=== PATIENT | male | born 1950 | race Hispanic/Latino ===

== ENCOUNTER 2018-09-25 08:26 | Day surgery (SDC) | payer OTHER ==
[2018-09-20 14:32] VITALS: BMI 31.3
[2018-09-25] MEDS ORDERED: Phenylephrine 2.5% Opht Soln OD ONE (08:44)
[2018-09-25] MEDS ORDERED: Flurbiprofen 0.03% Opht SOLN OU SCH (08:45)
[2018-09-25] MEDS ORDERED: Tropicamide 1% Opht 150 DROP/15 ML RIGHTEYE SCH (08:45)
[2018-09-25] MEDS ORDERED: Lactated Ringer's 1,000 ML IV ONE ×2 (09:09→11:25)
[2018-09-25] MEDS ORDERED: Tropicamide 1% Opht 150 DROP/15 ML RIGHTEYE ONE (09:10)
[2018-09-25] MEDS ORDERED: Tetracaine 0.5% Ophth 2 ML BOTTLE ONE (09:23)
[2018-09-25] MEDS ORDERED: Maxitrol Opht Susp ONE (09:23)
[2018-09-25] MEDS ORDERED: EPINEPHrine 1 mg/ml (1:1000) Inj ONE (09:23)
[2018-09-25] MEDS ORDERED: STERILE IRRIGATING SOLUTION 15 ML IR ONE (09:24)
[2018-09-25] MEDS ORDERED: Lidocaine 1% 20 MG/2 ML PF AMP ONE (09:24)
[2018-09-25] MEDS ORDERED: Pilocarpine 1% Opht Soln ONE (09:24)
[2018-09-25] MEDS ORDERED: CA CL/K CL/NA CL 500 ML IR ONE (09:24)
[2018-09-25] MEDS ORDERED: STERILE IRRIGATING SOLUTION 30 ML IR ONE (09:24)
[2018-09-25] MEDS ORDERED: Chondroitin/Hyaluronate Opth Syringe KIT (0.55 ml-0.5 ml) IO ONE ×2 (09:25→11:45)
[2018-09-25] MEDS ORDERED: Povidone Iodine 5% Opht SOLUTION ONE (09:25)
[2018-09-25] MEDS ORDERED: Carbachol 0.01% IO ONE (09:25)
[2018-09-25] MEDS ORDERED: Flurbiprofen 0.03% Opht SOLN OU ONE (09:50)
[2018-09-25] MEDS ORDERED: Midazolam 2 MG/2 ML VIAL ONE (11:39)
[2018-09-25] MEDS ORDERED: BSS 15 ML SOL IR ONE (11:45)
[2018-09-25] MEDS ORDERED: Lidocaine 1.5% PF (20ml) amp IJ ONE (11:45)
[2018-09-25 13:36] VITALS: RESP 18
[2018-09-25 14:19] VITALS: BP 135/83; PULSE 75; TEMP 98.3; O2SAT 96
--- NOTE | 2018-09-27 01:26 | OP ---
PROCEDURE DATE: 09/25/2018 PREOPERATIVE DIAGNOSIS: Cataract and astigmatism of the right eye. POSTOPERATIVE DIAGNOSIS: Cataract and astigmatism of the right eye. SURGICAL PROCEDURE: Phacoemulsification with posterior chamber lens implant and astigmatic keratotomy of the right eye. DESCRIPTION OF PROCEDURE: The patient was prepped and draped in the usual manner for sterile ophthalmic surgery. Topical anesthesia and intracameral anesthetics were utilized for performance of the procedure. Under microsurgical control, the 150 degree axis was identified and marked. A 550 micron, depth 6 nicola blade was utilized for two astigmatic cuts at the 150 degree axis. After this was performed, a 2 o'clock clear corneal incision was made for the cataract procedure. Intracameral anesthetic was introduced and then it was followed by injection of viscoelastic. A continuous circular capsulorhexis was performed utilizing a bent 25-gauge needle. Hydrodissection was carried out subsequently for separation of the nucleus from the peripheral cortex. After this was carried out, a standard phacoemulsification was performed, followed by an ALINA removal of the residual lenticular cortex. A folded Aquasoft intraocular lens was injected through the single incision at the 2 o'clock position. The intraocular lens was properly positioned and the viscoelastic was then evacuated from the capsular bag in the anterior chamber. Miochol was injected for constriction of the pupil, which was obtained satisfactorily. The anterior chamber was reformed using BAL solution and the 2 o'clock corneal incision was hydrated and was found to be watertight. The intraocular pressure was checked and found to be within normal limits. This terminated the procedure. Maxitrol drops were applied to the eye and the patient was brought to the postanesthesia area with stable vital signs. Lincoln Rodgers MD
== END 2018-09-25 15:30 | disposition home or self-care (01) ==
LOC: H.OPSURG 08:26
PROVIDERS: ATTEND Ophthalmology
DX: H25.811 Combined forms of age-related cataract, right eye (principal)
CPT/HCPCS: 66984; J0171; J2250; J3010; J7120; V2632

== ENCOUNTER 2018-10-23 10:05 | Day surgery (SDC) | payer OTHER ==
[2018-09-20 14:32] VITALS: BMI 31.3
[2018-10-23] MEDS ORDERED: EPINEPHrine 1 mg/ml (1:1000) Inj ONE (10:10)
[2018-10-23] MEDS ORDERED: Lidocaine 1% 20 MG/2 ML PF AMP ONE (10:10)
[2018-10-23] MEDS ORDERED: Tetracaine 0.5% Ophth 2 ML BOTTLE ONE (10:10)
[2018-10-23] MEDS ORDERED: STERILE IRRIGATING SOLUTION 45 ML IR ONE (10:11)
[2018-10-23] MEDS ORDERED: CA CL/K CL/NA CL 500 ML IR ONE (10:11)
[2018-10-23] MEDS ORDERED: Chondroitin/Hyaluronate Opth Syringe KIT (0.55 ml-0.5 ml) IO ONE (10:11)
[2018-10-23] MEDS ORDERED: Povidone Iodine 5% Opht SOLUTION ONE (10:12)
[2018-10-23] MEDS ORDERED: Carbachol 0.01% IO ONE ×2 (10:12→14:16)
[2018-10-23 11:26] VITALS: RESP 18
[2018-10-23] MEDS ORDERED: Flurbiprofen 0.03% Opht SOLN OS SCH (11:30)
[2018-10-23] MEDS ORDERED: Tropicamide 1% Opht 150 DROP/15 ML OS SCH (11:30)
[2018-10-23] MEDS ORDERED: Phenylephrine 2.5% Opht Soln OS SCH (11:30)
[2018-10-23] MEDS ORDERED: Tropicamide 1% Opht 150 DROP/15 ML LEFTEYE ONE (11:41)
[2018-10-23] MEDS ORDERED: Phenylephrine 2.5% Opht Soln OS ONE (11:41)
[2018-10-23] MEDS ORDERED: Flurbiprofen 0.03% Opht SOLN OS ONE (11:41)
[2018-10-23] MEDS ORDERED: Midazolam 2 MG/2 ML VIAL ONE (13:39)
[2018-10-23] MEDS ORDERED: Lactated Ringer's 1,000 ML IV ONE (13:40)
[2018-10-23] MEDS: Maxitrol Opht Susp ONE ×2 (14:17→14:24)
[2018-10-23] MEDS: Pilocarpine 1% Opht Soln ONE ×2 (14:17→14:24)
[2018-10-23 16:18] VITALS: BP 130/71; PULSE 59; TEMP 97.6; O2SAT 98
--- NOTE | 2018-10-24 07:46 | OP ---
PROCEDURE DATE: 10/23/2018 SURGEON: BROOKS EMMANUEL MD ANESTHESIOLOGIST: KELLIE MORA MD ANESTHESIA: LOCAL / IV SEDATION PREOPERATIVE DIAGNOSIS: CATARACT LEFT EYE. POSTOPERATIVE DIAGNOSIS: CATARACT LEFT EYE. OPERATION: CLEAR CORNEAL PHACOEMULSIFICATION WITH LENS IMPLANT LEFT EYE. PREPARATION AND PROCEDURE: After the patient was prepped and draped in the usual manner for sterile ophthalmic surgery, local IV sedation was administered; eye seals were applied to the upper and lower lid margins and an adult wire lid speculum was placed within the lids. Under microsurgical control, a two-step clear corneal incision was made into the anterior chamber. The initial incision was perpendicular to the corneal plane. The second incision with the keratome was placed at a 45-degree angle to the first incision. One cc of one percent Xylocaine MPF was instilled into the anterior chamber to achieve proper intraocular anesthesia. At this time, the Viscoelastic was injected into the anterior chamber for protection of the endothelium and for maintenance of the chamber depth. A 360-degree continuous curvilinear capsulorrhexis was performed using a pre-bent 25-gauge needle. Hydrodissection and hydrodelineation were performed using a Gomez cannula and balanced salt solution. Utilizing the tip of the Gomez cannula, the nucleus was rotated freely within the capsular bag. A standard one-handed phacoemulsification was utilized at this time for sculpting and rotating of the nucleus. The nucleus was fragmented in its entirety and aspirated without any consequence. A standard I&A was carried out for the residual cortical material. No residual material was noted within the capsular bag. The posterior capsule was noted to be clear. Additional Viscoelastic was injected into the capsular bag in preparation for lens implantation. After this has been satisfactorily achieved the intraocular lens injected through the corneal incision into the capsular bag. The intraocular lens was manipulated until it was properly oriented and the Viscoelastic was evacuated from the capsular bag and anterior chamber. The anterior chamber was reformed with balanced salt solution. The corneal incision was irrigated with BSS. The intraocular pressure was found to be within normal limits. This terminated the procedure. The speculum and lid drapes were removed. TobraDex ophthalmic suspension and Pilocarpine 1% drops one drop was applied to the eye. POSTOPERATIVE CONDITION: The patient was brought to the Post anesthesia Recovery area with stable vital signs. DBROOKS DAVIS MD
== END 2018-10-23 16:25 | disposition home or self-care (01) ==
LOC: H.OPSURG 10:05
PROVIDERS: ATTEND Ophthalmology
DX: H25.812 Combined forms of age-related cataract, left eye (principal)
CPT/HCPCS: 66984; J0171; J2250; J3010; J7120